=== PATIENT | female | born 1935 | race Caucasian/White ===

== ENCOUNTER → 2016-11-25 | Outpatient (CLI) | payer BC ==
--- NOTE | 2016-11-25 12:55 | DX ---
Chest, PA and Lateral History: Cough x2 months Comparison: June 28, 2013 Findings: Left chest wall surgical clips and bilateral lower lung scarring is stable. There is no inf iltrate or new consolidation. Heart size is normal. There is no adenopathy or mass lesion. There is n o pleural effusion. There are stable moderate T12 and mild T6 and T7 compression deformities. No new compressions have developed. Impression: No evidence for pneumonia or metastatic breast cancer.
== END ==
LOC: FIMAGING 12:20
PROVIDERS: ATTEND Family Medicine
DX: R05 Cough (principal); K21.9 Gastro-esophageal reflux disease without esophagitis

== ENCOUNTER → 2017-04-21 | Outpatient (CLI) | payer BC | LOC: FIMAGING 08:46 | PROVIDERS: ATTEND Family Medicine | DX: Z12.31 Encounter for screening mammogram for malignant neoplasm of breast (principal); Z85.3 Personal history of malignant neoplasm of breast | CPT/HCPCS: G0202-52 ==

== ENCOUNTER → 2018-02-09 | Outpatient (CLI) | payer BC | LOC: FIMAGING 09:33 | PROVIDERS: ATTEND Family Medicine | DX: M47.892 Other spondylosis, cervical region (principal); M43.12 Spondylolisthesis, cervical region ==

== ENCOUNTER → 2018-04-23 | Outpatient (CLI) | payer BC | LOC: FIMAGING 08:19 | PROVIDERS: ATTEND Internal Medicine Hematology & Oncology | DX: Z12.31 Encounter for screening mammogram for malignant neoplasm of breast (principal); Z85.3 Personal history of malignant neoplasm of breast; Z90.12 Acquired absence of left breast and nipple ==

== ENCOUNTER → 2018-04-26 | Outpatient (CLI) | payer BC | LOC: FIMAGING 11:26 | PROVIDERS: ATTEND Internal Medicine Hematology & Oncology | DX: Z13.820 Encounter for screening for osteoporosis (principal); M85.89 Other specified disorders of bone density and structure, multiple sites; E07.9 Disorder of thyroid, unspecified; C50.919 Malignant neoplasm of unspecified site of unspecified female breast; Z78.0 Asymptomatic menopausal state; Z96.642 Presence of left artificial hip joint ==